=== PATIENT | female | born 1945 | race Caucasian/White ===

== ENCOUNTER → 2016-11-18 | Outpatient (CLI) | payer MEDICARE | LOC: MW.CHFP 08:00 | PROVIDERS: ATTEND Emergency Medicine | DX: I73.9 Peripheral vascular disease, unspecified (principal); Z48.02 Encounter for removal of sutures | CPT/HCPCS: G0463 ==

== ENCOUNTER 2022-01-26 15:04 | Inpatient (IN) | payer MEDICARE ==
[2022-01-26] MEDS ORDERED: cefTRIAXone 1 GM in Sodium Chloride 0.9% 50 ML IV ONE (15:20)
[2022-01-26] MEDS ORDERED: Sodium Chloride 0.9% 10 ML Syringe FLUSH PRN (15:20)
[2022-01-26] MEDS ORDERED: Sodium Chloride 0.9% 2.5 ML Syringe FLUSH PRN (15:20)
[2022-01-26] MEDS ORDERED: Albuterol/Ipratropium 3.0-0.5 MG/3 ML Neb Soln NEB ONE (15:22)
[2022-01-26] MEDS ORDERED: methylPREDNISolone Sodium Succinate 125 MG/2 ML SDV IVPUSH ONE (15:23)
[2022-01-26] MEDS ORDERED: Azithromycin 500 MG in Sodium Chloride 0.9% 250 ML IV SCH (15:30)
[2022-01-26 16:10] LABS: CHLORIDE,CL 98 mmol/L (98-107); POTASSIUM,K 4.1 mmol/L (3.5-5.1); SODIUM,NA 137 mmol/L (136-145)
[2022-01-26 16:20] LABS: BLOOD UREA NITROGEN,BUN 21 mg/dL (7.0-18.0); CARBON DIOXIDE,CO2 33.1 mmol/L (21.0-32.0); ESTIMATED GFR > 60.0 ml/min; GLUCOSE RANDOM 255 mg/dL (74-106)
[2022-01-26] MEDS ORDERED: Iopamidol 755 MG/ML 500 ML Multipack Bottle IVPUSH STA (17:49)
[2022-01-26] MEDS ORDERED: Acetaminophen 325 MG Tab PO SCH (23:30)
[2022-01-27] MEDS: Enoxaparin 40 MG/0.4 ML Syringe SUBCUT SCH ×2 (00:20→23:08)
[2022-01-27] MEDS: Albuterol/Ipratropium 3.0-0.5 MG/3 ML Neb Soln NEB SCH ×5 (00:23→23:08)
[2022-01-27 07:41] LABS: BLOOD UREA NITROGEN,BUN 16 mg/dL (7.0-18.0); CARBON DIOXIDE,CO2 28.3 mmol/L (21.0-32.0); CHLORIDE,CL 98 mmol/L (98-107); GLUCOSE RANDOM 205 mg/dL (74-106); POTASSIUM,K 4.4 mmol/L (3.5-5.1); SODIUM,NA 137 mmol/L (136-145)
[2022-01-27 07:42] LABS: ESTIMATED GFR > 60.0 ml/min
[2022-01-27] MEDS ORDERED: Furosemide 40 MG Tab PO SCH (08:00)
[2022-01-27] MEDS ORDERED: Glucagon,Human Recombinant 1 MG Vial IM PRN (08:45)
[2022-01-27] MEDS ORDERED: Sodium Chloride 0.65% Nasal Spray 45 ML Bottle NAS PRN (08:45)
[2022-01-27] MEDS ORDERED: 50% Dextrose in Water 50 ML Syringe IVPUSH PRN (08:45)
[2022-01-27] MEDS: BISOPROLOL 10 MG PO SCH ×2 (08:45→21:17)
[2022-01-27] MEDS: Famotidine 20 MG Tab PO SCH (08:46)
[2022-01-27] MEDS: Acetaminophen 500 MG Tab PO SCH ×2 (08:47→21:16)
[2022-01-27] MEDS: Losartan 50 MG Tab PO SCH (08:47)
[2022-01-27] MEDS: methylPREDNISolone Sodium Succinate 40 MG/1 ML SDV IVPUSH SCH (08:49)
[2022-01-27] MEDS ORDERED: Aspirin 81 MG Tab.EC PO SCH ×2 (09:00)
[2022-01-27] MEDS ORDERED: PIOGLITAZONE HCL 30 MG PO SCH (09:00)
[2022-01-27] MEDS ORDERED: Pantoprazole 40 MG Tab.CR PO SCH (09:00)
[2022-01-27] MEDS ORDERED: Levofloxacin/Dextrose 5%-Water 750 MG in Premix Bag 1 BAG IV SCH (09:00)
[2022-01-27] MEDS: Furosemide 40 MG/4 ML VIAL IVPUSH SCH ×2 (09:18→21:16)
[2022-01-27] MEDS: Fluticasone NASAL Spray 16 GM Bottle NASBOTH SCH (09:29)
[2022-01-27] MEDS: amLODIPine 5 MG Tab PO SCH (09:30)
[2022-01-27] MEDS: Clopidogrel 75 MG Tab PO SCH (09:30)
[2022-01-27] MEDS: Piperacillin/Tazobactam 3.375 GM in Sodium Chloride 0.9% 50 ML IV SCH ×3 (13:16→23:08)
[2022-01-27] MEDS: Insulin Aspart 100 Units/ML 3 ML Pen SUBCUT SCH ×2 (13:16→18:25)
[2022-01-27] MEDS ORDERED: Azithromycin 500 MG Vial IV SCH (16:00)
[2022-01-27] MEDS: Azithromycin 500 MG in Sodium Chloride 0.9% 250 ML IV SCH (16:20)
[2022-01-27] MEDS: Ezetimibe 10 MG Tab PO SCH (21:16)
[2022-01-28] MEDS: Piperacillin/Tazobactam 3.375 GM in Sodium Chloride 0.9% 50 ML IV SCH ×4 (05:48→23:47)
[2022-01-28] MEDS: Albuterol/Ipratropium 3.0-0.5 MG/3 ML Neb Soln NEB SCH ×4 (07:00→23:47)
[2022-01-28 07:27] LABS: CARBON DIOXIDE,CO2 32.8 mmol/L (21.0-32.0); ESTIMATED GFR 54.1 ml/min; POTASSIUM,K 3.6 mmol/L (3.5-5.1)
[2022-01-28] MEDS: Insulin Aspart 100 Units/ML 3 ML Pen SUBCUT SCH ×3 (07:48→18:09)
[2022-01-28] MEDS ORDERED: Magnesium Sulfate/Water 2 GM in Premix Bag 1 BAG IV ONE (08:52)
[2022-01-28] MEDS: methylPREDNISolone Sodium Succinate 40 MG/1 ML SDV IVPUSH SCH (09:40)
[2022-01-28] MEDS: Acetaminophen 500 MG Tab PO SCH ×2 (09:40→20:55)
[2022-01-28] MEDS: Furosemide 40 MG/4 ML VIAL IVPUSH SCH ×2 (09:41→20:55)
[2022-01-28] MEDS: Clopidogrel 75 MG Tab PO SCH (09:41)
[2022-01-28] MEDS: Losartan 50 MG Tab PO SCH (09:41)
[2022-01-28] MEDS: amLODIPine 5 MG Tab PO SCH (09:41)
[2022-01-28] MEDS: Famotidine 20 MG Tab PO SCH (09:42)
[2022-01-28] MEDS: Fluticasone NASAL Spray 16 GM Bottle NASBOTH SCH (09:46)
[2022-01-28] MEDS: BISOPROLOL 10 MG PO SCH ×2 (09:47→20:55)
[2022-01-28] MEDS: Azithromycin 500 MG in Sodium Chloride 0.9% 250 ML IV SCH (15:36)
[2022-01-28] MEDS: Ezetimibe 10 MG Tab PO SCH (20:55)
[2022-01-28] MEDS: Enoxaparin 40 MG/0.4 ML Syringe SUBCUT SCH (23:47)
[2022-01-29] MEDS: Albuterol/Ipratropium 3.0-0.5 MG/3 ML Neb Soln NEB SCH ×4 (05:58→23:46)
[2022-01-29] MEDS: Piperacillin/Tazobactam 3.375 GM in Sodium Chloride 0.9% 50 ML IV SCH ×4 (05:58→23:46)
[2022-01-29] MEDS: Insulin Aspart 100 Units/ML 3 ML Pen SUBCUT SCH ×3 (06:29→18:10)
[2022-01-29 07:13] LABS: CARBON DIOXIDE,CO2 33.6 mmol/L (21.0-32.0); POTASSIUM,K 3.6 mmol/L (3.5-5.1)
[2022-01-29 07:18] LABS: ESTIMATED GFR 48.4 ml/min
[2022-01-29] MEDS: Furosemide 40 MG/4 ML VIAL IVPUSH SCH ×2 (09:39→21:40)
[2022-01-29] MEDS: methylPREDNISolone Sodium Succinate 40 MG/1 ML SDV IVPUSH SCH (09:39)
[2022-01-29] MEDS: Famotidine 20 MG Tab PO SCH (09:40)
[2022-01-29] MEDS: Losartan 50 MG Tab PO SCH (09:40)
[2022-01-29] MEDS: Acetaminophen 500 MG Tab PO SCH ×2 (09:40→21:39)
[2022-01-29] MEDS: amLODIPine 5 MG Tab PO SCH (09:41)
[2022-01-29] MEDS: BISOPROLOL 10 MG PO SCH ×2 (09:41→21:39)
[2022-01-29] MEDS: Clopidogrel 75 MG Tab PO SCH (09:41)
[2022-01-29] MEDS: Fluticasone NASAL Spray 16 GM Bottle NASBOTH SCH (09:42)
[2022-01-29] MEDS: Azithromycin 500 MG in Sodium Chloride 0.9% 250 ML IV SCH (16:08)
[2022-01-29] MEDS: Ezetimibe 10 MG Tab PO SCH (21:39)
[2022-01-29] MEDS: Enoxaparin 40 MG/0.4 ML Syringe SUBCUT SCH (23:46)
[2022-01-30] MEDS: Piperacillin/Tazobactam 3.375 GM in Sodium Chloride 0.9% 50 ML IV SCH ×4 (06:17→23:49)
[2022-01-30] MEDS: Albuterol/Ipratropium 3.0-0.5 MG/3 ML Neb Soln NEB SCH ×4 (06:17→23:48)
[2022-01-30] MEDS: Insulin Aspart 100 Units/ML 3 ML Pen SUBCUT SCH ×3 (06:53→17:33)
[2022-01-30 07:34] LABS: CARBON DIOXIDE,CO2 33.9 mmol/L (21.0-32.0); POTASSIUM,K 3.4 mmol/L (3.5-5.1)
[2022-01-30 07:36] LABS: ESTIMATED GFR 54.1 ml/min
[2022-01-30] MEDS: amLODIPine 5 MG Tab PO SCH (08:20)
[2022-01-30] MEDS: Famotidine 20 MG Tab PO SCH (08:21)
[2022-01-30] MEDS: Clopidogrel 75 MG Tab PO SCH (08:21)
[2022-01-30] MEDS: Acetaminophen 500 MG Tab PO SCH ×2 (08:22→20:12)
[2022-01-30] MEDS: Losartan 50 MG Tab PO SCH (08:22)
[2022-01-30] MEDS: Fluticasone NASAL Spray 16 GM Bottle NASBOTH SCH (08:23)
[2022-01-30] MEDS: BISOPROLOL 10 MG PO SCH ×2 (08:23→20:13)
[2022-01-30] MEDS: methylPREDNISolone Sodium Succinate 40 MG/1 ML SDV IVPUSH SCH (08:24)
[2022-01-30] MEDS: Furosemide 40 MG/4 ML VIAL IVPUSH SCH ×2 (08:32→20:13)
[2022-01-30] MEDS ORDERED: Potassium Chloride 20 MEQ Tab.ER PO ONE (09:21)
[2022-01-30] MEDS ORDERED: Magnesium Oxide 400 MG Tab PO ONE (09:21)
[2022-01-30] MEDS: Acidophilus with Citrus Pectin/L.acidophilus Tab PO SCH (09:53)
[2022-01-30] MEDS: Azithromycin 500 MG in Sodium Chloride 0.9% 250 ML IV SCH (15:58)
[2022-01-30] MEDS: Ezetimibe 10 MG Tab PO SCH (20:13)
[2022-01-30] MEDS: Enoxaparin 40 MG/0.4 ML Syringe SUBCUT SCH (23:48)
[2022-01-31] MEDS: Albuterol/Ipratropium 3.0-0.5 MG/3 ML Neb Soln NEB SCH ×3 (06:26→17:27)
[2022-01-31] MEDS: Piperacillin/Tazobactam 3.375 GM in Sodium Chloride 0.9% 50 ML IV SCH ×3 (06:26→17:31)
[2022-01-31] MEDS: Insulin Aspart 100 Units/ML 3 ML Pen SUBCUT SCH ×3 (06:43→17:26)
[2022-01-31 08:08] LABS: CARBON DIOXIDE,CO2 31.9 mmol/L (21.0-32.0); POTASSIUM,K 3.5 mmol/L (3.5-5.1)
[2022-01-31 08:11] LABS: ESTIMATED GFR 54.1 ml/min
[2022-01-31] MEDS: Acetaminophen 500 MG Tab PO SCH ×2 (08:39→20:53)
[2022-01-31] MEDS: Famotidine 20 MG Tab PO SCH (08:39)
[2022-01-31] MEDS: Clopidogrel 75 MG Tab PO SCH (08:39)
[2022-01-31] MEDS: Acidophilus with Citrus Pectin/L.acidophilus Tab PO SCH (08:39)
[2022-01-31] MEDS: BISOPROLOL 10 MG PO SCH ×2 (08:40→20:54)
[2022-01-31] MEDS: Fluticasone NASAL Spray 16 GM Bottle NASBOTH SCH (08:40)
[2022-01-31] MEDS: amLODIPine 5 MG Tab PO SCH (08:42)
[2022-01-31] MEDS: Losartan 50 MG Tab PO SCH (08:43)
[2022-01-31] MEDS: Furosemide 40 MG/4 ML VIAL IVPUSH SCH ×2 (08:45→20:53)
[2022-01-31] MEDS: methylPREDNISolone Sodium Succinate 40 MG/1 ML SDV IVPUSH SCH (08:47)
[2022-01-31] MEDS: Azithromycin 500 MG in Sodium Chloride 0.9% 250 ML IV SCH (16:25)
[2022-01-31] MEDS ORDERED: Potassium Chloride 20 MEQ Tab.ER PO ONE (19:49)
[2022-01-31] MEDS: Ezetimibe 10 MG Tab PO SCH (20:53)
[2022-02-01] MEDS: Enoxaparin 40 MG/0.4 ML Syringe SUBCUT SCH ×2 (00:21→23:21)
[2022-02-01] MEDS: Albuterol/Ipratropium 3.0-0.5 MG/3 ML Neb Soln NEB SCH ×5 (00:22→23:21)
[2022-02-01] MEDS: Piperacillin/Tazobactam 3.375 GM in Sodium Chloride 0.9% 50 ML IV SCH ×5 (00:22→23:21)
[2022-02-01] MEDS: Insulin Aspart 100 Units/ML 3 ML Pen SUBCUT SCH ×3 (07:14→17:55)
[2022-02-01 07:39] LABS: CARBON DIOXIDE,CO2 34.2 mmol/L (21.0-32.0); POTASSIUM,K 3.8 mmol/L (3.5-5.1)
[2022-02-01 07:40] LABS: ESTIMATED GFR 48.4 ml/min
[2022-02-01] MEDS: BISOPROLOL 10 MG PO SCH ×2 (08:15→20:23)
[2022-02-01] MEDS: Acidophilus with Citrus Pectin/L.acidophilus Tab PO SCH (08:15)
[2022-02-01] MEDS: Acetaminophen 500 MG Tab PO SCH ×2 (08:16→20:21)
[2022-02-01] MEDS: Clopidogrel 75 MG Tab PO SCH (08:16)
[2022-02-01] MEDS: amLODIPine 5 MG Tab PO SCH (08:17)
[2022-02-01] MEDS: Losartan 50 MG Tab PO SCH (08:20)
[2022-02-01] MEDS: Famotidine 20 MG Tab PO SCH (08:21)
[2022-02-01] MEDS: Fluticasone NASAL Spray 16 GM Bottle NASBOTH SCH (08:21)
[2022-02-01] MEDS: methylPREDNISolone Sodium Succinate 40 MG/1 ML SDV IVPUSH SCH (08:23)
[2022-02-01] MEDS: Furosemide 40 MG/4 ML VIAL IVPUSH SCH ×2 (08:26→20:22)
[2022-02-01] MEDS: Azithromycin 500 MG in Sodium Chloride 0.9% 250 ML IV SCH (16:12)
[2022-02-01] MEDS ORDERED: 50% Dextrose in Water 50 ML Syringe IVPUSH PRN (17:10)
[2022-02-01] MEDS ORDERED: Glucagon,Human Recombinant 1 MG Vial IM PRN (17:10)
[2022-02-01] MEDS ORDERED: Insulin Aspart 100 Units/ML 3 ML Pen SUBCUT ONE (17:11)
[2022-02-01] MEDS: Ezetimibe 10 MG Tab PO SCH (20:23)
[2022-02-02] MEDS: Piperacillin/Tazobactam 3.375 GM in Sodium Chloride 0.9% 50 ML IV SCH (05:25)
[2022-02-02] MEDS: Albuterol/Ipratropium 3.0-0.5 MG/3 ML Neb Soln NEB SCH (05:54)
[2022-02-02 06:52] LABS: CARBON DIOXIDE,CO2 33.1 mmol/L (21.0-32.0); POTASSIUM,K 3.8 mmol/L (3.5-5.1)
[2022-02-02 06:55] LABS: ESTIMATED GFR 43.8 ml/min
[2022-02-02] MEDS: Insulin Aspart 100 Units/ML 3 ML Pen SUBCUT SCH (07:36)
[2022-02-02 08:56] VITALS: PULSE 91
[2022-02-02] MEDS: Furosemide 40 MG/4 ML VIAL IVPUSH SCH (09:39)
[2022-02-02] MEDS: Losartan 50 MG Tab PO SCH (09:39)
[2022-02-02] MEDS: methylPREDNISolone Sodium Succinate 40 MG/1 ML SDV IVPUSH SCH (09:39)
[2022-02-02] MEDS: Acetaminophen 500 MG Tab PO SCH (09:41)
[2022-02-02] MEDS: Famotidine 20 MG Tab PO SCH (09:41)
[2022-02-02] MEDS: BISOPROLOL 10 MG PO SCH (09:42)
[2022-02-02] MEDS: Clopidogrel 75 MG Tab PO SCH (09:42)
[2022-02-02] MEDS: amLODIPine 5 MG Tab PO SCH (09:43)
[2022-02-02] MEDS: Acidophilus with Citrus Pectin/L.acidophilus Tab PO SCH (09:44)
[2022-02-02] MEDS: Fluticasone NASAL Spray 16 GM Bottle NASBOTH SCH (09:44)
[2022-02-02 09:45] VITALS: BP 180/76
== END 2022-02-02 13:00 | disposition home or self-care (01) | DRG 193 ==
LOC: MW.ED 15:04 → MW.MS 18:03
PROVIDERS: ADMIT Internal Medicine; ATTEND Internal Medicine
DX: J18.9 Pneumonia, unspecified organism (principal); J96.21 Acute and chronic respiratory failure with hypoxia; J44.0 Chronic obstructive pulmonary disease with (acute) lower respiratory infection; I10 Essential (primary) hypertension; E11.9 Type 2 diabetes mellitus without complications; I11.0 Hypertensive heart disease with heart failure; I50.9 Heart failure, unspecified; E78.00 Pure hypercholesterolemia, unspecified; E66.9 Obesity, unspecified; Z20.822 Contact with and (suspected) exposure to COVID-19; Z79.52 Long term (current) use of systemic steroids; Z79.899 Other long term (current) drug therapy; Z88.1 Allergy status to other antibiotic agents; Z88.8 Allergy status to other drugs, medicaments and biological substances; Z86.010 Personal history of colon polyps; Z90.49 Acquired absence of other specified parts of digestive tract; Z90.710 Acquired absence of both cervix and uterus; Z98.49 Cataract extraction status, unspecified eye; Z79.82 Long term (current) use of aspirin; Z68.31 Body mass index [BMI] 31.0-31.9, adult
CPT/HCPCS: 36415; 71275; 80053; 81001; 83605; 83880; 84484; 87040 ×2; 94640; 96365; 96366; 96367; 96375; 99285; J0456; J0696; J2930; J3490; J7050; Q9967; U0002; 80048; 82947; 83735; 84100; 85025; 93005; 93306; 99291; A9270-GY; J1650; J1815-GY; J1940; J1956; J2543; J2920; J3475; J7620-GY

== ENCOUNTER 2023-06-01 20:40 | Inpatient (IN) | payer MEDICARE ==
[2023-06-01] MEDS ORDERED: Dexamethasone 10 MG/ML SDV IVPUSH ONE (20:48)
[2023-06-01] MEDS ORDERED: Albuterol 0.083% 2.5 MG/3 ML Neb Soln ONE (20:48)
[2023-06-01] MEDS ORDERED: Sodium Chloride 0.9% 10 ML Syringe FLUSH PRN ×2 (20:48→23:28)
[2023-06-01] MEDS ORDERED: Albuterol/Ipratropium 3.0-0.5 MG/3 ML Neb Soln ONE (20:48)
[2023-06-01] MEDS ORDERED: Sodium Chloride 0.9% 2.5 ML Syringe FLUSH PRN ×2 (20:48→23:28)
[2023-06-01] MEDS ORDERED: Albuterol/Ipratropium 3.0-0.5 MG/3 ML Neb Soln NEB ONE (20:51)
[2023-06-01] MEDS ORDERED: Albuterol 0.083% 2.5 MG/3 ML Neb Soln NEB ONE ×2 (20:51→22:46)
[2023-06-01] MEDS ORDERED: Magnesium Sulfate/Water 2 GM in Premix Bag 1 BAG IV ONE (20:51)
[2023-06-01] MEDS ORDERED: Levofloxacin/Dextrose 5%-Water 500 MG in Premix Bag 1 BAG IV ONE (20:54)
[2023-06-01 20:56] LABS: BASE EXCESS VENOUS 2.7 (-2.0-3.0); PH,VENOUS 7.35 (7.31-7.41)
[2023-06-01 20:58] LABS: BASOPHILS ABSOLUTE AUTO 0.04 K/uL (0.00-0.20); BASOPHILS PERCENT AUTO 0.5 % (0.0-1.0); EOSINOPHILS ABSOLUTE AUTO 0.09 K/uL (0.00-0.45); HEMATOCRIT 40.5 % (37.0-47.0); HEMOGLOBIN 12.4 g/dL (12.0-16.0); IMMATURE GRAN ABSOLUTE AUTO 0.03 K/uL (0.00-0.05); IMMATURE GRAN PERCENT AUTO 0.3 % (0.0-0.4); LYMPHOCYTES ABSOLUTE AUTO 1.34 K/uL (1.00-4.80); LYMPHOCYTES PERCENT AUTO 15.5 % (24.0-44.0); MEAN CORPUSCULAR HEMOGLOBIN 26.1 pg (28.0-32.0); MEAN CORPUSCULAR HGB CONC 30.6 g/dL (32.0-36.0); MEAN CORPUSCULAR VOLUME 85.3 fL (83.0-99.0); MEAN PLATELET VOLUME 9.3 fL (9.4-12.3); MONOCYTES ABSOLUTE AUTO 0.73 K/uL (0.00-0.80); MONOCYTES PERCENT AUTO 8.4 % (0.0-8.0); NEUTROPHILS ABSOLUTE AUTO 6.4 K/uL (1.8-7.7); NEUTROPHILS PERCENT AUTO 74.3 % (41.0-71.0); PLATELET COUNT,PLT 210 K/uL (150-400); RED BLOOD CELL COUNT 4.75 M/uL (4.10-5.30); WHITE BLOOD CELL COUNT,WBC 8.65 K/uL (3.9-11.3)
[2023-06-01 21:28] LABS: A/G RATIO 0.9 (0.9-1.6); ALBUMIN 3.5 g/dL (3.4-5.0); BILIRUBIN TOTAL 0.7 mg/dL (0.2-1.0); CALCIUM 9.9 mg/dL (8.5-10.1); CARBON DIOXIDE,CO2 29.9 mmol/L (21.0-32.0); CREATININE 1.3 mg/dL (0.6-1.0); EST CRCL DRUG DOSING (CG) 29.12 mL/min; POTASSIUM,K 4.1 mmol/L (3.5-5.1); PROTEIN TOTAL,TP 7.5 g/dL (6.4-8.2)
[2023-06-01] MEDS ORDERED: Magnesium Sulfate/Water 50 ML ONE (22:12)
[2023-06-01 22:13] LABS: CORONAVIRUS COVID-19 NAA NEGATIVE (NEGATIVE); INFLUENZA A NAA NEGATIVE (NEGATIVE); INFLUENZA B NAA NEGATIVE (NEGATIVE); RESPIRATORY SYNCYTIAL VIR NAA NEGATIVE (NEGATIVE)
[2023-06-01] MEDS ORDERED: Iopamidol 755 MG/ML 500 ML Multipack Bottle IVPUSH ONE (22:18)
[2023-06-01] MEDS ORDERED: Polyethylene Glycol 3350 Powder 17 GM Packet PO PRN ×2 (23:28→23:51)
[2023-06-01] MEDS ORDERED: Acetaminophen 325 MG Tab PO PRN (23:28)
[2023-06-01] MEDS ORDERED: Sodium Chloride 0.9% 20 ML SDV IV PRN (23:28)
[2023-06-01] MEDS ORDERED: Ondansetron 4 MG/2 ML SDV IVPUSH PRN ×2 (23:28→23:51)
[2023-06-01] MEDS ORDERED: Levofloxacin/Dextrose 5%-Water 250 MG in Premix Bag 1 BAG IV ONE (23:45)
[2023-06-01] MEDS ORDERED: Levofloxacin/Dextrose 5%-Water 500 MG in Premix Bag 1 BAG IV SCH ×4 (23:45)
[2023-06-02] MEDS: Albuterol/Ipratropium 3.0-0.5 MG/3 ML Neb Soln NEB SCH ×6 (00:59→21:03)
[2023-06-02 06:10] LABS: BASOPHILS ABSOLUTE AUTO 0.01 K/uL (0.00-0.20); BASOPHILS PERCENT AUTO 0.1 % (0.0-1.0); HEMATOCRIT 38.8 % (37.0-47.0); IMMATURE GRAN ABSOLUTE AUTO 0.04 K/uL (0.00-0.05); IMMATURE GRAN PERCENT AUTO 0.5 % (0.0-0.4); LYMPHOCYTES ABSOLUTE AUTO 0.37 K/uL (1.00-4.80); LYMPHOCYTES PERCENT AUTO 4.8 % (24.0-44.0); MEAN CORPUSCULAR HEMOGLOBIN 26.5 pg (28.0-32.0); MEAN CORPUSCULAR HGB CONC 30.9 g/dL (32.0-36.0); MEAN CORPUSCULAR VOLUME 85.7 fL (83.0-99.0); MEAN PLATELET VOLUME 9.1 fL (9.4-12.3); MONOCYTES ABSOLUTE AUTO 0.26 K/uL (0.00-0.80); MONOCYTES PERCENT AUTO 3.4 % (0.0-8.0); NEUTROPHILS PERCENT AUTO 91.2 % (41.0-71.0); PLATELET COUNT,PLT 183 K/uL (150-400); RED BLOOD CELL COUNT 4.53 M/uL (4.10-5.30); WHITE BLOOD CELL COUNT,WBC 7.65 K/uL (3.9-11.3)
[2023-06-02 06:39] LABS: A/G RATIO 0.8 (0.9-1.6); ALBUMIN 3.2 g/dL (3.4-5.0); BILIRUBIN TOTAL 0.6 mg/dL (0.2-1.0); CALCIUM 9.8 mg/dL (8.5-10.1); CARBON DIOXIDE,CO2 24.3 mmol/L (21.0-32.0); CREATININE 1.2 mg/dL (0.6-1.0); EST CRCL DRUG DOSING (CG) 37.34 mL/min; MAGNESIUM 2.5 mg/dL (1.8-2.4); POTASSIUM,K 4.5 mmol/L (3.5-5.1)
[2023-06-02] MEDS ORDERED: 50% Dextrose in Water 50 ML Syringe IVPUSH PRN (08:00)
[2023-06-02] MEDS ORDERED: Glucagon,Human Recombinant 1 MG Vial IM PRN (08:00)
[2023-06-02] MEDS: methylPREDNISolone Sodium Succinate 40 MG/1 ML SDV IVPUSH SCH ×2 (08:31→21:03)
[2023-06-02] MEDS ORDERED: methylPREDNISolone Sodium Succinate 40 MG/1 ML SDV IVPUSH SCH (09:00)
[2023-06-02] MEDS ORDERED: Levofloxacin/Dextrose 5%-Water 750 MG in Premix Bag 1 BAG IV SCH (09:00)
[2023-06-02] MEDS ORDERED: Levofloxacin/Dextrose 5%-Water 500 MG in Premix Bag 1 BAG IV SCH ×2 (09:00→23:45)
[2023-06-02] MEDS ORDERED: Heparin Sodium 5,000 Units/ML Vial SUBCUT SCH (09:15)
[2023-06-02] MEDS ORDERED: Furosemide 40 MG/4 ML VIAL IVPUSH ONE (09:18)
[2023-06-02] MEDS: Furosemide 40 MG Tab PO SCH ×2 (09:25→13:50)
[2023-06-02] MEDS: Insulin Aspart 100 Units/ML 3 ML Pen SUBCUT SCH ×2 (12:07→16:53)
[2023-06-02] MEDS: Ampicillin/Sulbactam Na 3 GM in Sodium Chloride 0.9% 100 ML IV SCH (15:28)
[2023-06-02] MEDS: Sodium Chloride 0.65% Nasal Spray 45 ML Bottle NAS PRN (23:17)
[2023-06-03] MEDS: Albuterol/Ipratropium 3.0-0.5 MG/3 ML Neb Soln NEB SCH ×7 (01:40→23:24)
[2023-06-03] MEDS: Ampicillin/Sulbactam Na 3 GM in Sodium Chloride 0.9% 100 ML IV SCH ×3 (02:15→20:05)
[2023-06-03 07:56] LABS: BASOPHILS ABSOLUTE AUTO 0.01 K/uL (0.00-0.20); BASOPHILS PERCENT AUTO 0.1 % (0.0-1.0); HEMATOCRIT 38.3 % (37.0-47.0); HEMOGLOBIN 12.3 g/dL (12.0-16.0); IMMATURE GRAN ABSOLUTE AUTO 0.06 K/uL (0.00-0.05); IMMATURE GRAN PERCENT AUTO 0.6 % (0.0-0.4); LYMPHOCYTES ABSOLUTE AUTO 0.73 K/uL (1.00-4.80); LYMPHOCYTES PERCENT AUTO 7.2 % (24.0-44.0); MEAN CORPUSCULAR HEMOGLOBIN 26.7 pg (28.0-32.0); MEAN CORPUSCULAR HGB CONC 32.1 g/dL (32.0-36.0); MEAN CORPUSCULAR VOLUME 83.1 fL (83.0-99.0); MEAN PLATELET VOLUME 8.8 fL (9.4-12.3); MONOCYTES ABSOLUTE AUTO 0.75 K/uL (0.00-0.80); MONOCYTES PERCENT AUTO 7.4 % (0.0-8.0); NEUTROPHILS ABSOLUTE AUTO 8.59 K/uL (1.80-7.70); NEUTROPHILS PERCENT AUTO 84.7 % (41.0-71.0); PLATELET COUNT,PLT 218 K/uL (150-400); RED BLOOD CELL COUNT 4.61 M/uL (4.10-5.30); WHITE BLOOD CELL COUNT,WBC 10.14 K/uL (3.9-11.3)
[2023-06-03] MEDS: Insulin Aspart 100 Units/ML 3 ML Pen SUBCUT SCH ×3 (07:58→17:01)
[2023-06-03] MEDS: Furosemide 40 MG Tab PO SCH ×2 (08:00→14:03)
[2023-06-03] MEDS: methylPREDNISolone Sodium Succinate 40 MG/1 ML SDV IVPUSH SCH (08:01)
[2023-06-03 08:17] LABS: A/G RATIO 0.9 (0.9-1.6); ALBUMIN 3.4 g/dL (3.4-5.0); BILIRUBIN TOTAL 0.7 mg/dL (0.2-1.0); CALCIUM 9.8 mg/dL (8.5-10.1); CARBON DIOXIDE,CO2 28.1 mmol/L (21.0-32.0); CREATININE 1.3 mg/dL (0.6-1.0); EST CRCL DRUG DOSING (CG) 34.46 mL/min; POTASSIUM,K 4.6 mmol/L (3.5-5.1); PROTEIN TOTAL,TP 7.2 g/dL (6.4-8.2)
[2023-06-03] MEDS ORDERED: Levofloxacin/Dextrose 5%-Water 750 MG in Premix Bag 1 BAG IV SCH (09:00)
[2023-06-03] MEDS: Heparin Sodium 5,000 Units/ML Vial SUBCUT SCH ×2 (09:28→20:05)
[2023-06-03] MEDS: Sodium Chloride 0.65% Nasal Spray 45 ML Bottle NAS PRN ×2 (12:53→18:56)
[2023-06-03] MEDS ORDERED: Furosemide 40 MG/4 ML VIAL IVPUSH ONE (17:46)
[2023-06-03] MEDS ORDERED: methylPREDNISolone Sodium Succinate 40 MG/1 ML SDV IVPUSH SCH (19:00)
[2023-06-03] MEDS: Insulin Glargine,Hum.Rec.Anlog 100 UNIT/ML 3 ML Pen SUBCUT SCH (20:05)
[2023-06-03] MEDS: LORazepam 0.5 MG Tab PO PRN (20:21)
[2023-06-03] MEDS: Levofloxacin/Dextrose 5%-Water 750 MG in Premix Bag 1 BAG IV SCH (22:10)
[2023-06-03] MEDS ORDERED: LORazepam 1 MG Tab PO ONE (22:27)
[2023-06-03] MEDS ORDERED: diphenhydrAMINE 25 MG Cap PO PRN (23:46)
[2023-06-04] MEDS: Ampicillin/Sulbactam Na 3 GM in Sodium Chloride 0.9% 100 ML IV SCH ×4 (02:03→20:31)
[2023-06-04] MEDS: Albuterol/Ipratropium 3.0-0.5 MG/3 ML Neb Soln NEB SCH ×4 (05:11→23:48)
[2023-06-04 06:34] LABS: BASOPHILS ABSOLUTE AUTO 0.01 K/uL (0.00-0.20); BASOPHILS PERCENT AUTO 0.1 % (0.0-1.0); EOSINOPHILS ABSOLUTE AUTO 0.04 K/uL (0.00-0.45); EOSINOPHILS PERCENT AUTO 0.4 % (0.0-6.0); HEMATOCRIT 36.6 % (37.0-47.0); HEMOGLOBIN 11.5 g/dL (12.0-16.0); IMMATURE GRAN ABSOLUTE AUTO 0.04 K/uL (0.00-0.05); IMMATURE GRAN PERCENT AUTO 0.4 % (0.0-0.4); LYMPHOCYTES ABSOLUTE AUTO 1.26 K/uL (1.00-4.80); LYMPHOCYTES PERCENT AUTO 13.4 % (24.0-44.0); MEAN CORPUSCULAR HEMOGLOBIN 26.1 pg (28.0-32.0); MEAN CORPUSCULAR HGB CONC 31.4 g/dL (32.0-36.0); MEAN PLATELET VOLUME 9.5 fL (9.4-12.3); MONOCYTES ABSOLUTE AUTO 1.08 K/uL (0.00-0.80); MONOCYTES PERCENT AUTO 11.5 % (0.0-8.0); NEUTROPHILS PERCENT AUTO 74.2 % (41.0-71.0); PLATELET COUNT,PLT 204 K/uL (150-400); RED BLOOD CELL COUNT 4.41 M/uL (4.10-5.30); WHITE BLOOD CELL COUNT,WBC 9.43 K/uL (3.9-11.3)
[2023-06-04 07:05] LABS: A/G RATIO 0.9 (0.9-1.6); ALBUMIN 3.2 g/dL (3.4-5.0); BILIRUBIN TOTAL 0.7 mg/dL (0.2-1.0); CALCIUM 9.9 mg/dL (8.5-10.1); CARBON DIOXIDE,CO2 31.1 mmol/L (21.0-32.0); CREATININE 1.1 mg/dL (0.6-1.0); EST CRCL DRUG DOSING (CG) 40.73 mL/min; PROTEIN TOTAL,TP 6.8 g/dL (6.4-8.2)
[2023-06-04] MEDS ORDERED: Furosemide 20 MG/2 ML VIAL IVPUSH SCH (08:00)
[2023-06-04] MEDS: Insulin Aspart 100 Units/ML 3 ML Pen SUBCUT SCH ×3 (08:31→16:59)
[2023-06-04] MEDS ORDERED: Furosemide 40 MG/4 ML VIAL IVPUSH ONE (09:01)
[2023-06-04] MEDS: predniSONE 20 MG Tab PO SCH (09:22)
[2023-06-04] MEDS: Heparin Sodium 5,000 Units/ML Vial SUBCUT SCH ×3 (09:23→20:33)
[2023-06-04] MEDS: Lidocaine 4% 1 each Patch TOP SCH (13:03)
[2023-06-04] MEDS ORDERED: Furosemide 40 MG/4 ML VIAL IVPUSH SCH (14:00)
[2023-06-04] MEDS: Acetaminophen 325 MG Tab PO PRN (16:01)
[2023-06-04] MEDS: Furosemide 40 MG/4 ML VIAL IVPUSH SCH ×2 (18:12→21:05)
[2023-06-04] MEDS: Insulin Glargine,Hum.Rec.Anlog 100 UNIT/ML 3 ML Pen SUBCUT SCH (20:34)
[2023-06-04] MEDS: LORazepam 0.5 MG Tab PO PRN (22:09)
[2023-06-05] MEDS ORDERED: traZODone 50 MG Tab PO PRN (02:08)
[2023-06-05] MEDS ORDERED: ALPRAZolam 0.25 MG Tab PO PRN (02:10)
[2023-06-05] MEDS: Ampicillin/Sulbactam Na 3 GM in Sodium Chloride 0.9% 100 ML IV SCH ×4 (03:21→20:47)
[2023-06-05] MEDS: Furosemide 40 MG/4 ML VIAL IVPUSH SCH (05:39)
[2023-06-05] MEDS: Albuterol/Ipratropium 3.0-0.5 MG/3 ML Neb Soln NEB SCH (05:39)
[2023-06-05 07:36] LABS: A/G RATIO 0.9 (0.9-1.6); ALBUMIN 3.4 g/dL (3.4-5.0); BILIRUBIN TOTAL 0.6 mg/dL (0.2-1.0); CREATININE 1.3 mg/dL (0.6-1.0); EST CRCL DRUG DOSING (CG) 34.46 mL/min; POTASSIUM,K 3.6 mmol/L (3.5-5.1); PROTEIN TOTAL,TP 7.3 g/dL (6.4-8.2)
[2023-06-05 07:58] LABS: EOSINOPHILS PERCENT AUTO 0.6 % (0.0-6.0); HEMATOCRIT 42.4 % (37.0-47.0); HEMOGLOBIN 13.2 g/dL (12.0-16.0); LYMPHOCYTES PERCENT AUTO 16.6 % (24.0-44.0); MEAN CORPUSCULAR HGB CONC 31.1 g/dL (32.0-36.0); MEAN CORPUSCULAR VOLUME 83.5 fL (83.0-99.0); MEAN PLATELET VOLUME 9.5 fL (9.4-12.3); MONOCYTES PERCENT AUTO 13.1 % (0.0-8.0); NEUTROPHILS PERCENT AUTO 68.8 % (41.0-71.0); PLATELET COUNT,PLT 211 K/uL (150-400); RED BLOOD CELL COUNT 5.08 M/uL (4.10-5.30); WHITE BLOOD CELL COUNT,WBC 8.94 K/uL (3.9-11.3)
[2023-06-05 07:59] LABS: BASOPHILS ABSOLUTE AUTO 0.01 K/uL (0.00-0.20); BASOPHILS PERCENT AUTO 0.1 % (0.0-1.0); EOSINOPHILS ABSOLUTE AUTO 0.05 K/uL (0.00-0.45); IMMATURE GRAN ABSOLUTE AUTO 0.07 K/uL (0.00-0.05); IMMATURE GRAN PERCENT AUTO 0.8 % (0.0-0.4); LYMPHOCYTES ABSOLUTE AUTO 1.48 K/uL (1.00-4.80); MONOCYTES ABSOLUTE AUTO 1.17 K/uL (0.00-0.80); NEUTROPHILS ABSOLUTE AUTO 6.16 K/uL (1.80-7.70)
[2023-06-05] MEDS: Insulin Aspart 100 Units/ML 3 ML Pen SUBCUT SCH ×3 (08:20→17:28)
[2023-06-05] MEDS: predniSONE 20 MG Tab PO SCH (08:31)
[2023-06-05] MEDS: Heparin Sodium 5,000 Units/ML Vial SUBCUT SCH ×2 (08:33→20:45)
[2023-06-05] MEDS: Lidocaine 4% 1 each Patch TOP SCH ×2 (09:18→13:03)
[2023-06-05] MEDS ORDERED: Albuterol/Ipratropium 3.0-0.5 MG/3 ML Neb Soln NEB PRN (10:28)
[2023-06-05] MEDS ORDERED: Fluticasone NASAL Spray 16 GM Bottle NASBOTH SCH (10:30)
[2023-06-05] MEDS: Pantoprazole 40 MG in Sodium Chloride 0.9% 10 ML IVPUSH SCH (11:17)
[2023-06-05] MEDS: Budesonide 0.5 MG/2 ML Neb Susp NEB SCH ×2 (11:20→21:40)
[2023-06-05] MEDS: Acetaminophen 325 MG Tab PO PRN (13:02)
[2023-06-05] MEDS ORDERED: Furosemide 40 MG/4 ML VIAL IVPUSH SCH ×2 (14:00→21:00)
[2023-06-05] MEDS: Insulin Glargine,Hum.Rec.Anlog 100 UNIT/ML 3 ML Pen SUBCUT SCH (20:45)
[2023-06-05] MEDS: Sodium Chloride 0.65% Nasal Spray 45 ML Bottle NAS PRN (20:46)
[2023-06-05] MEDS: LORazepam 0.5 MG Tab PO PRN (20:46)
[2023-06-05] MEDS: Levofloxacin/Dextrose 5%-Water 750 MG in Premix Bag 1 BAG IV SCH (22:11)
[2023-06-05] MEDS ORDERED: diphenhydrAMINE 50 MG/ML SDV IVPUSH ONE (23:00)
[2023-06-06] MEDS: Ampicillin/Sulbactam Na 3 GM in Sodium Chloride 0.9% 100 ML IV SCH ×2 (02:18→10:39)
[2023-06-06 06:18] LABS: BASOPHILS ABSOLUTE AUTO 0.01 K/uL (0.00-0.20); BASOPHILS PERCENT AUTO 0.1 % (0.0-1.0); EOSINOPHILS ABSOLUTE AUTO 0.09 K/uL (0.00-0.45); EOSINOPHILS PERCENT AUTO 1.1 % (0.0-6.0); HEMATOCRIT 41.2 % (37.0-47.0); HEMOGLOBIN 12.6 g/dL (12.0-16.0); IMMATURE GRAN ABSOLUTE AUTO 0.06 K/uL (0.00-0.05); IMMATURE GRAN PERCENT AUTO 0.7 % (0.0-0.4); LYMPHOCYTES ABSOLUTE AUTO 1.35 K/uL (1.00-4.80); LYMPHOCYTES PERCENT AUTO 16.7 % (24.0-44.0); MEAN CORPUSCULAR HEMOGLOBIN 25.8 pg (28.0-32.0); MEAN CORPUSCULAR HGB CONC 30.6 g/dL (32.0-36.0); MEAN CORPUSCULAR VOLUME 84.4 fL (83.0-99.0); MONOCYTES ABSOLUTE AUTO 0.91 K/uL (0.00-0.80); MONOCYTES PERCENT AUTO 11.3 % (0.0-8.0); NEUTROPHILS ABSOLUTE AUTO 5.66 K/uL (1.80-7.70); NEUTROPHILS PERCENT AUTO 70.1 % (41.0-71.0); PLATELET COUNT,PLT 196 K/uL (150-400); RED BLOOD CELL COUNT 4.88 M/uL (4.10-5.30); WHITE BLOOD CELL COUNT,WBC 8.08 K/uL (3.9-11.3)
[2023-06-06 06:22] LABS: A/G RATIO 0.8 (0.9-1.6); ALBUMIN 2.9 g/dL (3.4-5.0); BILIRUBIN TOTAL 0.6 mg/dL (0.2-1.0); CALCIUM 9.2 mg/dL (8.5-10.1); CARBON DIOXIDE,CO2 33.4 mmol/L (21.0-32.0); CREATININE 1.4 mg/dL (0.6-1.0); POTASSIUM,K 3.5 mmol/L (3.5-5.1); PROTEIN TOTAL,TP 6.6 g/dL (6.4-8.2)
[2023-06-06] MEDS: Insulin Aspart 100 Units/ML 3 ML Pen SUBCUT SCH ×3 (07:26→16:42)
[2023-06-06] MEDS ORDERED: LORazepam 0.5 MG Tab PO PRN (08:07)
[2023-06-06] MEDS: Furosemide 40 MG Tab PO SCH ×2 (08:57→13:03)
[2023-06-06] MEDS: Pantoprazole 40 MG in Sodium Chloride 0.9% 10 ML IVPUSH SCH (08:58)
[2023-06-06] MEDS: Heparin Sodium 5,000 Units/ML Vial SUBCUT SCH ×2 (09:06→21:31)
[2023-06-06] MEDS: Sodium Chloride 0.65% Nasal Spray 45 ML Bottle NAS PRN (09:07)
[2023-06-06] MEDS: predniSONE 20 MG Tab PO SCH (09:07)
[2023-06-06] MEDS: Acetaminophen 325 MG Tab PO PRN (10:30)
[2023-06-06] MEDS: Pantoprazole 40 MG Tab.CR PO SCH (10:55)
[2023-06-06] MEDS: Amoxicillin/Clavulanate K 875-125 MG Tab PO SCH ×2 (10:55→18:43)
[2023-06-06] MEDS: Budesonide 0.5 MG/2 ML Neb Susp NEB SCH ×2 (10:55→22:37)
[2023-06-06] MEDS ORDERED: acetaZOLAMIDE 250 MG Tab PO ONE ×2 (12:28→14:45)
[2023-06-06] MEDS: Lidocaine 4% 1 each Patch TOP SCH (15:37)
[2023-06-06] MEDS: Insulin Glargine,Hum.Rec.Anlog 100 UNIT/ML 3 ML Pen SUBCUT SCH (21:31)
[2023-06-07] MEDS: Amoxicillin/Clavulanate K 875-125 MG Tab PO SCH ×2 (03:17→10:31)
[2023-06-07 05:50] LABS: BASOPHILS ABSOLUTE AUTO 0.02 K/uL (0.00-0.20); BASOPHILS PERCENT AUTO 0.2 % (0.0-1.0); HEMATOCRIT 41.3 % (37.0-47.0); HEMOGLOBIN 12.9 g/dL (12.0-16.0); IMMATURE GRAN ABSOLUTE AUTO 0.09 K/uL (0.00-0.05); IMMATURE GRAN PERCENT AUTO 0.9 % (0.0-0.4); LYMPHOCYTES ABSOLUTE AUTO 1.57 K/uL (1.00-4.80); LYMPHOCYTES PERCENT AUTO 15.3 % (24.0-44.0); MEAN CORPUSCULAR HEMOGLOBIN 25.6 pg (28.0-32.0); MEAN CORPUSCULAR HGB CONC 31.2 g/dL (32.0-36.0); MEAN CORPUSCULAR VOLUME 82.1 fL (83.0-99.0); MEAN PLATELET VOLUME 9.3 fL (9.4-12.3); MONOCYTES ABSOLUTE AUTO 1.12 K/uL (0.00-0.80); MONOCYTES PERCENT AUTO 10.9 % (0.0-8.0); NEUTROPHILS ABSOLUTE AUTO 7.39 K/uL (1.80-7.70); NEUTROPHILS PERCENT AUTO 71.7 % (41.0-71.0); PLATELET COUNT,PLT 214 K/uL (150-400); RED BLOOD CELL COUNT 5.03 M/uL (4.10-5.30); WHITE BLOOD CELL COUNT,WBC 10.29 K/uL (3.9-11.3)
[2023-06-07] MEDS: Pantoprazole 40 MG Tab.CR PO SCH (06:30)
[2023-06-07 06:31] LABS: A/G RATIO 0.9 (0.9-1.6); ALBUMIN 3.1 g/dL (3.4-5.0); BILIRUBIN TOTAL 0.5 mg/dL (0.2-1.0); CALCIUM 9.3 mg/dL (8.5-10.1); CARBON DIOXIDE,CO2 31.2 mmol/L (21.0-32.0); CREATININE 1.3 mg/dL (0.6-1.0); EST CRCL DRUG DOSING (CG) 34.46 mL/min; POTASSIUM,K 3.3 mmol/L (3.5-5.1); PROTEIN TOTAL,TP 6.7 g/dL (6.4-8.2)
[2023-06-07] MEDS ORDERED: Potassium Chloride 20 MEQ Tab.ER PO ONE (07:18)
[2023-06-07] MEDS ORDERED: Pantoprazole 40 MG Tab.CR PO SCH (07:30)
[2023-06-07] MEDS: Insulin Aspart 100 Units/ML 3 ML Pen SUBCUT SCH ×2 (07:40→11:48)
[2023-06-07] MEDS: Heparin Sodium 5,000 Units/ML Vial SUBCUT SCH (07:59)
[2023-06-07] MEDS: Furosemide 40 MG Tab PO SCH (07:59)
[2023-06-07] MEDS: Budesonide 0.5 MG/2 ML Neb Susp NEB SCH (10:31)
[2023-06-07] MEDS: Lidocaine 4% 1 each Patch TOP SCH (13:50)
[2023-06-07 13:57] VITALS: BP 132/60; PULSE 108
== END 2023-06-07 13:45 | disposition home health service (06) | DRG 193 ==
LOC: MW.ED 20:40 → MW.ICU 23:17 → MW.ED 23:47 → MW.MS 06-06 13:14
PROVIDERS: ADMIT Family Medicine; ATTEND Family Medicine
PROC: 5A09357 Assistance with Respiratory Ventilation, Less than 24 Consecutive Hours, Continuous Positive Airway Pressure (ICD-10-PCS; principal; 2023-06-01)
DX: J18.9 Pneumonia, unspecified organism (principal); J96.21 Acute and chronic respiratory failure with hypoxia; J44.1 Chronic obstructive pulmonary disease with (acute) exacerbation; K61.0 Anal abscess; J44.0 Chronic obstructive pulmonary disease with (acute) lower respiratory infection; J44.9 Chronic obstructive pulmonary disease, unspecified; I11.0 Hypertensive heart disease with heart failure; I50.9 Heart failure, unspecified; E78.5 Hyperlipidemia, unspecified; I27.20 Pulmonary hypertension, unspecified; Z20.822 Contact with and (suspected) exposure to COVID-19; E11.9 Type 2 diabetes mellitus without complications; I10 Essential (primary) hypertension; Z79.4 Long term (current) use of insulin; Z86.73 Personal history of transient ischemic attack (TIA), and cerebral infarction without residual deficits; E78.00 Pure hypercholesterolemia, unspecified; E66.9 Obesity, unspecified; Z79.52 Long term (current) use of systemic steroids; Z88.8 Allergy status to other drugs, medicaments and biological substances; Z88.1 Allergy status to other antibiotic agents; Z86.010 Personal history of colon polyps; Z97.3 Presence of spectacles and contact lenses; Z68.30 Body mass index [BMI] 30.0-30.9, adult; Z90.49 Acquired absence of other specified parts of digestive tract; Z90.710 Acquired absence of both cervix and uterus; Z98.42 Cataract extraction status, left eye; Z98.41 Cataract extraction status, right eye; Z90.89 Acquired absence of other organs; Z87.891 Personal history of nicotine dependence; Z66 Do not resuscitate; Z99.81 Dependence on supplemental oxygen; Z79.899 Other long term (current) drug therapy
CPT/HCPCS: 0241U; 36415; 71045; 71275; 80053; 82803; 82947; 83605; 83690; 83735; 83880; 84484; 85025; 87040; 93005; 93306; 94640; 94667; 96365; 96367; 96375; 97161; 99285; 93010; 99291; A9270-GY; C9113; J0295; J1100; J1200; J1644; J1815-GY; J1940; J1956; J2920; J3475; J3490; J3535-GY; J7620-GY; Q9967